=== PATIENT | male | born 1990 | race African-American/Black ===

== ENCOUNTER 2019-01-08 08:14 | Emergency (ER) | payer MEDICAID, SELFPAY ==
[2019-01-08] MEDS ORDERED: predniSONE 10 MG TAB ONE (08:46)
[2019-01-08] MEDS ORDERED: predniSONE 20 MG TAB ONE (08:46)
== END 2019-01-08 09:00 | disposition home or self-care (01) ==
LOC: MADERS 08:14
DX: J45.901 Unspecified asthma with (acute) exacerbation (principal); F17.220 Nicotine dependence, chewing tobacco, uncomplicated
CPT/HCPCS: 94640; J7512; J7620